=== PATIENT | female | born 1985 | race Caucasian/White ===

== ENCOUNTER 2018-09-28 09:46 | Inpatient (IN) ==
--- NOTE | 2018-09-28 10:53 | History & Physical Report ---
Date of Service September 28, 2018 Assessment & Plan (1) with flank pain, antepartum: 41wk with ripe cervix but no active cervical change and therefore no labor. Planned initially for IOL tomorrow, but patient asked that this be delayed a few more days and now scheduled for Weds. Patient presents with acute R flank pain onset last night and kept her from sleeping, is not responding to OTC pain meds or heat. Noted to have personal h/o kidney stone. Most likely diagnoses are either hydronephrosis or nephrolithiasis, either of which may actually resolve with decompression of the R ureter via delivery of . In the event that narcotics, lithotripsy, stone retrieval, etc are needed, these interventions are similarly best done after has been delivered. Will start with retroperitoneal US to evaluate kidney. Patient advised that induction of labor might be the best next step. At this point, the flank pain is bad enough the patient is open to induction if that will help relieve the pain. She does not feel she can spend another night in the kind of pain she had last night. Present on Admission?: Yes History of Present Illness Primary Care Provider: Yordy Walker Allergies Allergy/AdvReac Type Severity Reaction Status Date / Time amoxicillin Allergy Mild Hives Verified 09/22/18 18:41 azithromycin [From Zithromax] Allergy Mild Hives Verified 09/22/18 18:41 clindamycin Allergy Mild Hives Verified 09/22/18 18:41 doxycycline Allergy Mild Hives Verified 09/22/18 18:41 Home Medications Home Medications Medication Instructions Recorded Confirmed Type fluticasone propionate [Flonase 1 spray INTRANASAL DAILY 09/22/18 09/22/18 History Allergy Relief] loratadine [Claritin] 10 mg PO DAILY 09/22/18 09/22/18 History vit-iron fum-folic ac 1 tab PO DAILY 09/22/18 09/22/18 History [ Vitamin] ranitidine HCl 150 mg PO DAILY 09/22/18 09/22/18 History Patient History Medical History Anxiety Stopped Ativan with +HPT Depression has not taken medication for several years GERD (gastroesophageal reflux disease) History of recurrent UTIs Personal history of kidney stones [employer] [place] [employer] [place] teeth extracted Social History Preferred Language: Guyanese Communication Ability: Effective Beliefs That Will Affect Care: None marital status: Current Living Situation: Spouse Other Information That Helps Us Care for You: No Feels Safe at Home: Yes Safety Concerns: Feels Safe At This Time Smoking Status: Never smoker Hx Alcohol Use: No Hx Substance Use: No Physical Exam Vital Signs (Past 24 Hours): Last Vital Signs Temp 36.8 C 09/28/18 09:59 Pulse 77 09/28/18 10:00 Resp 20 09/28/18 09:59 BP 129/84 09/28/18 10:00 Constitutional: WD/WN, vitals as above Eyes: PERRL, conjunctivae normal, anicteric sclerae Neck: trachea midline, no thyromegaly Respiratory: normal respiratory effort, lungs clear to auscultation Cardiovascular: RRR, no murmur, no edema Gastrointestinal (Abdomen): Gravid, NT. R CVA TTP significant. No pain traveling down lateral flank or into pelvic region. Musculoskeletal: no cyanosis or clubbing, extremities motor strength 5/5 Skin: no rashes, warm and dry Neurologic: patellar DTR's 2+ bilat, sensation intact Monitoring External Monitor Cat 1 Tocodynamometer Low amplitude waves, irritability. Rare discrete contractions that palpate mild.
[2018-09-28 11:04] LABS: Basophils # (auto) 0.02 K/uL (0-0.2); Basophils % (auto) 0.2 %; Eosinophils # (auto) 0.11 K/uL (0-0.5); Eosinophils % (auto) 0.9 %; Hematocrit (blood only) 31.4 % (37-47); Hemoglobin 11.1 g/dL (12.0-16.0); Immature Granulocytes # (auto) 0.15 K/uL (0.00-0.02); Immature Granulocytes % (auto) 1.2 %; Lymphocytes # (auto) 1.47 K/uL (1.2-3.4); Lymphocytes % (auto) 11.6 %; Monocytes # (auto) 0.76 K/uL (0.11-0.59); Neutrophils # (auto) 10.16 K/uL (1.4-6.5); Neutrophils % (auto) 80.1 %; Platelet Count 210 K/uL (130-400); RDW Coefficient of Variation 13.9 % (11.5-14.5); RDW Standard Deviation 45.2 fL (36.4-46.3); Red Blood Count 3.49 M/uL (4.2-5.4); White Blood Count 12.67 K/uL (4.8-10.8)
[2018-09-28 11:08] LABS: Mean Corpuscular Hgb Conc 35.4 g/dL (32-36)
[2018-09-28 11:20] LABS: BUN Creatinine Ratio 8.7 (10-20); Calcium 9.2 mg/dl (8.5-10.1); Creatinine Clr Calc Pharmacy 119.6 ml/min; Est GFR (African American) 102.2; Est GFR (Non-African American) 88.1; Potassium 3.5 mmol/L (3.5-5.1)
[2018-09-28 11:57] LABS: Appearance Urine Clear (Clear); Bilirubin Urine Negative (Negative); Blood Urine 3+ (Negative); Color Urine Yellow; Glucose Urine UA Negative (Negative); Ketones Urine Negative (Negative); Leukocyte Esterase Urine 2+ (Negative); Nitrite Urine Negative (Negative); Protein Urine Negative (Negative); Specific Gravity Urine <= 1.005 (1.000-1.030); Urobilinogen Urine Negative (Negative); pH Urine 7.5 (4.5-7.5)
[2018-09-28 12:17] LABS: Epithelial Cell Urine >30 /lpf (0-5); RBC Urine 0-4 /hpf (0-4)
[2018-09-28 12:18] LABS: Bacteria Urine 1+ (Negative)
--- NOTE | 2018-09-28 12:36 | Ultrasound Report ---
US renal/blad retro comp HISTORY: 32 years-old Female R/O Nephrolithiasis, female acute bilateral flank pain with pr egnancy COMPARISON: None available TECHNIQUE: Multiple real-time sonographic images of the kidneys and urinary bladder were obtained ass essing grayscale appearance and color flow FINDINGS: The left kidney measures 13.1 cm in length and demonstrates moderate hydroureteronephrosis. There is a 1.0 cm nonobstructing calculus noted about the inferior pole left kidney. head causes mass effect upon the urinary bladder which is otherwise unremarkable. No ureteral j ets identified. Right kidney measures 13.0 cm in length. Moderate right-sided hydroureteronephrosis without right yulia al calculi identified. IMPRESSION: 1. Symmetric moderate bilateral hydroureteronephrosis. 2. 1.0 cm nonobstructing calculus of the inferior pole left kidney. 3. head partially compresses the urinary bladder lumen. The above report was generated using voice recognition software. It may contain grammatical, syntax o r spelling errors. Electronically signed by: Shyam Gunderson M.D. 09/28/2018 12:35 PM
[2018-09-28] MEDS ORDERED: OXYTOCIN 30 UNITS/500 ML BAG IV PRN ×2 (12:51)
[2018-09-28] MEDS ORDERED: LACTATED RINGER'S 1,000 ML IV PRN ×3 (12:51→22:31)
[2018-09-28] MEDS ORDERED: CEFAZOLIN 2000MG 2,000 MG/15 ML SYR IV STA (12:55)
--- NOTE | 2018-09-28 12:55 | Labor Progress Brief Note ---
Date of Service September 28, 2018 Assessment & Plan (1) with flank pain, antepartum: Postterm with compression of bladder and ureters causing moderate hydroureteronephrosis with R flank pain. Recommend IOL which patient is agreeable to, in order to decompress urinary system and relieve pain. UA contaminated and not overtly suggestive of UTI, however patient to receive cephalosporin for GBS prophylaxis and this will offer some coverage for potential urinary tract infection anyway. She is aware of plan for pitocin, with AROM after antibiotics on board, and all questions answered to her satisfaction. Present on Admission?: Yes Physical Exam Vital Signs (Past 24 Hours): Last Vital Signs Temp 36.8 C 09/28/18 09:59 Pulse 77 09/28/18 10:00 Resp 20 09/28/18 09:59 BP 129/84 09/28/18 10:00 Results & Data Laboratory Results Laboratory Results - last 24 hr 09/28/18 09/28/18 09/28/18 10:50 10:50 Unknown WBC 12.67 H RBC 3.49 L Hgb 11.1 L Hct 31.4 L MCV 90.0 MCH 31.8 MCHC 35.4 RDW Std Deviation 45.2 RDW Coeff of [place] 13.9 Plt Count 210 MPV 11.0 H Immature Gran % (Auto) 1.2 Neut % (Auto) 80.1 Lymph % (Auto) 11.6 [place] % (Auto) 6.0 Eos % (Auto) 0.9 Baso % (Auto) 0.2 Immature Gran # (Auto) 0.15 H Neut # (Auto) 10.16 H Lymph # (Auto) 1.47 [place] # (Auto) 0.76 H Eos # (Auto) 0.11 Baso # (Auto) 0.02 Sodium 138 Potassium 3.5 Chloride 108 H Carbon Dioxide 23 Anion Gap 7.0 BUN 7 Creatinine 0.86 Est Cr Clr Drug Dosing 119.6 Est GFR ( Amer) 102.2 Est GFR (Non-Af Amer) 88.1 BUN/Creatinine Ratio 8.7 L Glucose 67 L Calcium 9.2 Urine Color Yellow Urine Appearance Clear Urine pH 7.5 Ur Specific [place] <= 1.005 Urine Protein Negative Urine Glucose (UA) Negative Urine Ketones Negative Urine Blood 3+ H Urine Nitrite Negative Urine Bilirubin Negative Urine Urobilinogen Negative Ur Leukocyte Esterase 2+ H Urine RBC 0-4 Urine WBC 10-30 H Ur Epithelial Cells >30 H Urine Bacteria 1+ H Diagnostic Findings Renal ultrasound reviewed. Report in chart. Hydroureteronephrosis, moderate; L nonobstructing renal stone.
[2018-09-28] MEDS: LACTATED RINGER'S 1,000 ML IV SCH ×3 (13:15→22:27)
[2018-09-28] MEDS ORDERED: ACETAMINOPHEN 325 MG TAB PO STA (15:48)
--- NOTE | 2018-09-28 17:11 | Labor Progress Brief Note ---
Date of Service September 28, 2018 Subjective Coping with pain by standing, rocking, walking. Declines epidural at this time. Feels she needs to have BM but declines cervical check. Assessment & Plan (1) with flank pain, antepartum: Patient's second dose of GBS abx due after 9pm. At that time pt will accept cervical exam and AROM. For the moment she prefers not to be examined Will continue to titrate pitocin to Q2min pattern and provide epidural upon request in the meantime. Physical Exam Vital Signs (Past 24 Hours): Last Vital Signs Temp 36.9 C 09/28/18 15:04 Pulse 86 09/28/18 16:28 Resp 18 09/28/18 16:28 BP 134/84 09/28/18 16:28 Physical Exam: FHT Cat 1. [place] Q4 roughly.
[2018-09-28] MEDS: CEFAZOLIN 1000MG 1,000 MG/7.5 ML SYR IV PRN (21:02)
--- NOTE | 2018-09-28 21:04 | Labor Progress Brief Note ---
Date of Service September 28, 2018 Subjective Tolerating contractions by standing and swaying at bedside. Agreeable to AROM as planned at this time. Refuses epidural. Assessment & Plan (1) with flank pain, antepartum: Continue IOL with increasing pitocin, epidural on request, Ancef for GBS prophylaxis with multiple allergies. Physical Exam Vital Signs (Past 24 Hours): Last Vital Signs Temp 36.5 C 09/28/18 19:26 Pulse 72 09/28/18 19:26 Resp 18 09/28/18 19:26 BP 122/73 09/28/18 19:26 Physical Exam: FHT Cat 1 [place] Q3min Cvx 4/75/-2 AROM copious clear fluid
[2018-09-28] MEDS ORDERED: BUPIVACAINE 0.25% 30 ML VIAL ONE (21:21)
[2018-09-28] MEDS ORDERED: ePHEDrine sulfate 50 MG/ML AMP ONE (21:22)
[2018-09-28] MEDS ORDERED: fentaNYL citrate 100 MCG/2 ML VIAL ONE (21:22)
[2018-09-28] MEDS ORDERED: fentaNYL 2MCG/ML ROPIV 1.25MG/ML 100 ML BAG EPI ONE (21:23)
--- NOTE | 2018-09-28 21:53 | Anesthesiology Consultation ---
Date of Service September 28, 2018 Assessment & Plan Chart Review Chart Review: Patient NOT seen in Pre Admission Testing and Acceptable Risk for Labor Epidural Consults Requested none ASA ASA3 Proposed Anesthesia Anesthesia Type: Labor Epidural Risk / Benefits Reviewed With: PT / POA / Parent / Guardian, Accepts Plan and Informed Consent Obtained NPO Date Last Intake of Fluids: 09/28/18 Time Last Intake of Fluids: 22:28 Date Last Intake of Solids: 09/28/18 Time Last Intake of Solids: 08:00 History Height/Weight Height: 5 ft 6 in Weight: 116.573 kg Allergies Allergy/AdvReac Type Severity Reaction Status Date / Time amoxicillin Allergy Mild Hives Verified 09/28/18 13:45 azithromycin [From Zithromax] Allergy Mild Hives Verified 09/28/18 13:45 clindamycin Allergy Mild Hives Verified 09/28/18 13:45 doxycycline Allergy Mild Hives Verified 09/28/18 13:45 Medications Home Medications Medication Instructions Recorded Confirmed Last Taken fluticasone propionate [Flonase 1 spray INTRANASAL DAILY 09/22/18 09/28/18 09/22/18 Allergy Relief] loratadine [Claritin] 10 mg PO DAILY 09/22/18 09/28/18 09/27/18 08:00 vit-iron fum-folic ac 1 tab PO DAILY 09/22/18 09/28/18 09/27/18 08:00 [ Vitamin] ranitidine HCl 150 mg PO BID 09/22/18 09/28/18 09/27/18 20:00 Active Medications Generic Name Dose Route Start Last Admin Trade Name Freq PRN Reason Stop Dose Admin Cefazolin Sodium 1,000 mg in 7.5 mls @ 2.5 mls/min 09/28/18 21:00 09/28/18 21 :02 Ancef 1000mg IV 10/08/18 20:59 2.5 mls/min Q8H PRN Administration until delivery Lactated Ringer's 1,000 mls @ 125 mls/hr 09/28/18 13:00 09/28/18 22:27 Lr IV 09/30/18 12:59 125 mls/hr .Q8H HERMINIA Administration Oxytocin 30 units in 500 mls @ 15 mls/hr 09/28/18 12:51 09/28/18 18:49 Pitocin IV 09/30/18 12:50 0.9 units/hr .Q24H PRN 15 mls/hr Labor Induction/Augmentation Titration Protocol 0.9 UNITS/HR Past Medical History Medical History Anxiety Stopped Ativan with +HPT Depression has not taken medication for several years GERD (gastroesophageal reflux disease) History of recurrent UTIs Personal history of kidney stones [place] teeth extracted Past Anesthesia History No Hx of Anesthesia Complications History of PONV No Motion Sickness Screening History of Motion Sickness: Yes Social History Smoking Status: Never smoker Hx Alcohol Use: No Hx Substance Use: No substance use type: does not use Exercise / Class Metabolic Activity II 4-5 Yardwork/Stairs/Walk up hill Negative for chest pain or shortness of breath. Physical Exam Vital Signs Last Vital Signs Temp 36.5 C 09/28/18 19:26 Pulse 80 09/28/18 22:26 Resp 18 09/28/18 19:26 BP 123/64 09/28/18 22:26 Pulse Ox 98 09/28/18 22:26 Constitutional + obese (Gravid uterus) ENMT Mouth: no TMJ abnormality and oral opening not small Thyromental Distance: > or= 3.5 Finger Breadths Mallampati Class: I Neck normal visual inspection; neck extension not limited Respiratory normal respiratory effort Auscultation: lungs clear to auscultation bilaterally Cardiovascular Rate/Rhythm: regular rate and regular rhythm Heart Sounds: no murmur Neurologic moves all extremities Motor/Sensory: no sensory deficit Psychiatric A+Ox3, euthymic affect Orientation: alert and oriented x 3 Testing Laboratory Results 09/28/18 10:50 09/28/18 10:50 Urine Color Yellow 09/28/18 Unknown Urine Appearance Clear (Clear) 09/28/18 Unknown Urine pH 7.5 (4.5-7.5) 09/28/18 Unknown Ur Specific [place] <= 1.005 (1.000-1.030) 09/28/18 Unknown Urine Protein Negative (Negative) 09/28/18 Unknown Urine Glucose (UA) Negative (Negative) 09/28/18 Unknown Urine Ketones Negative (Negative) 09/28/18 Unknown Urine Nitrite Negative (Negative) 09/28/18 Unknown Ur Leukocyte Esterase 2+ (Negative) H 09/28/18 Unknown Urine RBC 0-4 /hpf (0-4) 09/28/18 Unknown Urine WBC 10-30 /hpf (0-5) H 09/28/18 Unknown Ur Epithelial Cells >30 /lpf (0-5) H 09/28/18 Unknown
[2018-09-28] MEDS ORDERED: fentaNYL 2MCG/ML ROPIV 1.25MG/ML 100 ML BAG EPI PRN (22:31)
[2018-09-28] MEDS ORDERED: ONDANSETRON INJ 2 MG/ML 2 ML VIAL IV PRN (22:31)
[2018-09-28] MEDS ORDERED: NALOXONE HCL 0.4 MG/1 ML VIAL/CARP IV PRN (22:31)
[2018-09-28] MEDS ORDERED: DiphenhydrAMINE HCL 50 MG/ML VIAL IV PRN (22:31)
[2018-09-28] MEDS ORDERED: NALOXONE HCL 1 MG in SODIUM CHLORIDE 0.9% 1000ML 1,000 ML IV PRN (22:31)
[2018-09-28] MEDS ORDERED: NALBUPHINE HCL INJ 10 MG/ML AMP IV PRN (22:31)
[2018-09-28] MEDS ORDERED: ePHEDrine sulfate 50 MG/ML AMP IV PRN (22:31)
[2018-09-28] MEDS ORDERED: ONDANSETRON INJ 2 MG/ML 2 ML VIAL ONE (22:38)
--- NOTE | 2018-09-28 23:17 | Labor Progress Brief Note ---
Date of Service September 28, 2018 Subjective Resting after epidural. Assessment & Plan (1) with flank pain, antepartum: Care discussed with RN and also with Dr. Wolfe. Patient at this time declines cervical check and requests to rest. Physical Exam Vital Signs (Past 24 Hours): Last Vital Signs Temp 36.5 C 09/28/18 19:26 Pulse 75 09/28/18 23:13 Resp 18 09/28/18 19:26 BP 116/62 09/28/18 23:13 Pulse Ox 97 09/28/18 23:11 Physical Exam: FHT Cat 1 (had lates after epidural, back to Cat 1 after BP improved s/p ephedrine). [place] Q2-3m
--- NOTE | 2018-09-29 04:00 | Labor Progress Brief Note ---
Date of Service September 29, 2018 Subjective Resting after epidural. Beginning to feel pressure again with contractions. Assessment & Plan (1) with flank pain, antepartum: Continue pitocin, Cephalosporin, epidural. Anticipate . Physical Exam Vital Signs (Past 24 Hours): Last Vital Signs Temp 36.8 C 09/29/18 02:35 Pulse 86 09/29/18 03:56 Resp 18 09/29/18 01:09 BP 118/64 09/29/18 03:52 Pulse Ox 100 09/29/18 03:56 Physical Exam: FHT Cat 1 [place] Q2m Cvx 9/100/-1
[2018-09-29] MEDS: CEFAZOLIN 1000MG 1,000 MG/7.5 ML SYR IV PRN (04:47)
[2018-09-29] MEDS: LACTATED RINGER'S 1,000 ML IV SCH (07:08)
[2018-09-29] MEDS ORDERED: BUPIVACAINE 0.25% 30 ML VIAL ONE (07:09)
--- NOTE | 2018-09-29 07:22 | Labor Progress Brief Note ---
Date of Service September 29, 2018 Subjective Complaining she can feel back pain and requesting epidural bolus dose. Assessment & Plan (1) with flank pain, antepartum: Epidural bolus dose, empty bladder, and reassess cervix to hopefully begin second stage of labor in the next 1-2 hours. Physical Exam Vital Signs (Past 24 Hours): Last Vital Signs Temp 36.8 C 09/29/18 06:02 Pulse 95 H 09/29/18 07:16 Resp 18 09/29/18 04:14 BP 125/70 09/29/18 05:52 Pulse Ox 100 09/29/18 07:16 Physical Exam: FHT Cat 1 [place] Q2-3m Cvx per RN exam: lip remains on R side only, not reducible
--- NOTE | 2018-09-29 07:41 | Labor Progress Brief Note ---
Date of Service September 29, 2018 Subjective comfortable after epidural redose Assessment & Plan (1) with flank pain, antepartum: Allow to rest and have ant lip reduce and hopefully labor down. op. Seems to have plenty of room. fetus category one. Physical Exam Vital Signs (Past 24 Hours): Last Vital Signs Temp 36.6 C 09/29/18 07:15 Pulse 84 09/29/18 07:37 Resp 18 09/29/18 07:15 BP 110/56 L 09/29/18 07:37 Pulse Ox 98 09/29/18 07:36 Constitutional: WD/WN, vitals as above Genitourinary: cx--ant lip/100/0 rop toco--q2-3min, pit at 15 efm--145 with mod variability, +small accels, no decels
--- NOTE | 2018-09-29 10:03 | Labor Progress Brief Note ---
Date of Service September 29, 2018 Subjective noting contractions again Assessment & Plan (1) with flank pain, antepartum: Begin second stage. Fetus overall category one . anticipate . Physical Exam Vital Signs (Past 24 Hours): Last Vital Signs Temp 36.9 C 09/29/18 09:30 Pulse 88 09/29/18 09:56 Resp 18 09/29/18 09:30 BP 132/62 09/29/18 09:54 Pulse Ox 98 09/29/18 09:56 Constitutional: WD/WN, vitals as above Genitourinary: cx--c/c/+1 toco--q2-3min, pit at 15 efm--135 wtih mod variability, accels to 150s, rare variable
--- NOTE | 2018-09-29 11:07 | Labor Progress Brief Note ---
Date of Service September 29, 2018 Subjective pushing Assessment & Plan (1) with flank pain, antepartum: Patient has not been pushing all that effectively. No movement of the station since started pushing. discussion that she needs to push harder if we have any chance of vaginal delivery. I am concerned about FTD and expressed this concern to them. the only thing she has control over is her effort. Fetus is rop. Reassuring fht. Will continue to push at this point. Physical Exam Vital Signs (Past 24 Hours): Last Vital Signs Temp 36.9 C 09/29/18 09:30 Pulse 95 H 09/29/18 11:01 Resp 18 09/29/18 09:30 BP 127/78 09/29/18 10:54 Pulse Ox 98 09/29/18 11:01 Constitutional: WD/WN, vitals as above Genitourinary: cx--c/c/0-+1, floppy lip that is easily reducible at 1 o'clock toco--q2-3min, pit at 17 efm--140 with mod variability, small accels, variables with pushing.
--- NOTE | 2018-09-29 12:17 | Labor Progress Brief Note ---
Date of Service September 29, 2018 Subjective getting uncomfortable again. Assessment & Plan (1) with flank pain, antepartum: (2) Failure of descent in labor, delivered, current hospitalization: I have recommended proceeding with c/s. r/b/se of surgery discussed--anesthesia, bleeding, transfusion, infection, poor wound healing, damage to surrounding structures--bowel, bladder, vessels, nerves, ureters, need for further surgery or hospitalization, blood clot, stroke, mi, . Patient and express understanding of the situation. Will proceed. Physical Exam Vital Signs (Past 24 Hours): Last Vital Signs Temp 36.9 C 09/29/18 09:30 Pulse 91 H 09/29/18 12:11 Resp 18 09/29/18 09:30 BP 133/86 09/29/18 12:05 Pulse Ox 96 09/29/18 12:11 Constitutional: WD/WN, vitals as above Genitourinary: cx--c/c/0-+1. Baby has not descended in the pelvis with over two hours of pushing. Head is molding and caput forming but true cephalic not lower toco--q24-min, pit at 18 efm--1250s with min to mod variability, small accels , variable decels only with pushing.
[2018-09-29] MEDS ORDERED: ONDANSETRON INJ 2 MG/ML 2 ML VIAL ONE (12:18)
[2018-09-29] MEDS ORDERED: OXYTOCIN 10 UNITS/ML VIAL ONE (12:18)
[2018-09-29] MEDS ORDERED: LIDOCAINE/EPINEPHRINE 2% 1:200,000 20 ML SDV ONE (12:18)
[2018-09-29] MEDS ORDERED: CITRIC ACID/SODIUM CITRATE 15 ML UDC ONE (12:28)
[2018-09-29] MEDS ORDERED: CEFAZOLIN 3000MG 65 ML IV SCH (12:30)
[2018-09-29] MEDS ORDERED: LACTATED RINGER'S 1,000 ML IV SCH ×2 (12:30→13:19)
[2018-09-29] MEDS ORDERED: PHENYLEPHRINE 100MCG/ML 5ML SYR ONE (13:01)
[2018-09-29] MEDS ORDERED: MoRPHine SULFATE PF 1 MG/ML 10 ML AMP/VIAL ONE (13:05)
[2018-09-29] MEDS ORDERED: METHYLERGONOVINE MALEATE 0.2 MG/ML AMP ONE (13:17)
[2018-09-29] MEDS ORDERED: NALOXONE HCL 0.08 MG in SYRINGE 1.8 ML IV PRN (13:19)
[2018-09-29] MEDS ORDERED: MoRPHine SULFATE 2 MG/ML CARP IV PRN (13:19)
[2018-09-29] MEDS ORDERED: NALOXONE HCL 0.4 MG/1 ML VIAL/CARP IV PRN (13:19)
[2018-09-29] MEDS ORDERED: LACTATED RINGER'S 500 ML IV PRN (13:19)
[2018-09-29] MEDS ORDERED: NALOXONE HCL 1 MG in SODIUM CHLORIDE 0.9% 1000ML 1,000 ML IV PRN (13:19)
[2018-09-29] MEDS ORDERED: MEPERIDINE HCL 25 MG/ML CARP IV PRN (13:19)
[2018-09-29] MEDS ORDERED: DiphenhydrAMINE HCL 50 MG/ML VIAL IV PRN (13:19)
[2018-09-29] MEDS ORDERED: MoRPHine SULFATE PF 1 MG/ML 10 ML AMP/VIAL EPI ONE (13:19)
[2018-09-29] MEDS ORDERED: ePHEDrine sulfate 50 MG/ML AMP IV PRN (13:19)
[2018-09-29] MEDS ORDERED: ONDANSETRON INJ 2 MG/ML 2 ML VIAL IV PRN (13:19)
[2018-09-29] MEDS ORDERED: NALBUPHINE HCL INJ 10 MG/ML AMP IV PRN (13:19)
[2018-09-29] MEDS ORDERED: DC INTRASPINAL MORPHINE SCH (13:30)
[2018-09-29] MEDS ORDERED: NO NARCOTICS OR SEDATIVES SCH (13:30)
[2018-09-29] MEDS ORDERED: SODIUM CHLORIDE 0.9% 1000ML 1,000 ML IV SCH (13:30)
--- NOTE | 2018-09-29 13:31 | Post Operative Brief Note ---
Immediate Post Op Note v1 Date of Surgery September 29, 2018 Pre & Post Diagnosis Operation Date: 09/29/18 12:30 Pre-Op Diagnosis: Intrauterine pregrancy at 41 1/7 weeks, arrest of descent Post-Op Diagnosis: Intrauterine pregrancy at 41 1/7 weeks, arrest of descent. Procedure Operation Date: 09/29/18 12:30 <No data on this case meets the specified criteria> Primary low transverse Surgeon Faiza Dave MD, FACOG Carrot Buncher Daniela Santana RN Estimated Blood Loss 700 Findings Consistent with Post-Op Diagnosis Drains Mahmood Catheter (mahmood catheter was present upon arrival to OR; draining pink tinged fluid, Urine output to be monitored by anesthesia intraoperatively.)
[2018-09-29] MEDS ORDERED: KETOROLAC 30 MG/ML VIAL IV PRN (13:42)
[2018-09-29] MEDS ORDERED: DIPHTHERIA/TETANUS/PERTUSSIS 0.5 ML SYR/VIAL IM ONE (13:42)
[2018-09-29] MEDS ORDERED: MEPERIDINE HCL 50 MG/ML CARP IV PRN (13:42)
[2018-09-29] MEDS ORDERED: HYDROCORTISONE ACETATE 25 MG SUPP PR PRN (13:42)
[2018-09-29] MEDS ORDERED: BENZOCAINE 20% AER SPR 82.5 GM CAN EXT PRN (13:42)
[2018-09-29] MEDS ORDERED: SUPERCREAM 0.870% 15 GM JAR EXT PRN (13:42)
--- NOTE | 2018-09-29 13:51 | Anesthesiology Progress Note ---
Date of Service September 29, 2018 Anesthesia Post Procedure Vital Signs Vital Signs: Temp Pulse Resp BP BP Pulse Ox 09/29/18 13:46 83 126/61 100 09/29/18 13:41 88 94 09/29/18 12:26 95 H 98 09/29/18 12:21 103 H 96 09/29/18 12:19 103 H 91 09/29/18 12:16 98 H 95 09/29/18 12:14 93 H 138/82 09/29/18 12:13 94 H 94 09/29/18 12:11 91 H 96 09/29/18 12:06 110 H 98 09/29/18 12:05 108 H 133/86 09/29/18 12:01 113 H 97 09/29/18 11:57 122 H 93 09/29/18 11:56 99 H 96 09/29/18 11:55 104 H 132/81 09/29/18 11:51 95 H 96 09/29/18 11:46 136 H 97 09/29/18 11:45 37.3 C 18 09/29/18 11:41 104 H 95 09/29/18 11:36 103 H 96 09/29/18 11:35 124 H 93 09/29/18 11:34 93 H 115/57 L 09/29/18 11:31 98 H 96 09/29/18 11:26 92 H 96 09/29/18 11:24 93 H 116/61 09/29/18 11:21 105 H 97 09/29/18 11:16 93 H 117/61 96 09/29/18 11:14 102 H 93 09/29/18 11:11 105 H 98 09/29/18 11:06 93 H 96 09/29/18 11:04 91 H 133/79 09/29/18 11:01 95 H 98 09/29/18 10:56 94 H 98 09/29/18 10:55 104 H 92 09/29/18 10:54 89 127/78 09/29/18 10:51 95 H 97 09/29/18 10:49 100 H 92 09/29/18 10:46 90 98 09/29/18 10:44 94 H 127/82 09/29/18 10:42 99 H 92 09/29/18 10:41 91 H 98 09/29/18 10:36 103 H 92 09/29/18 10:31 90 95 09/29/18 10:28 90 94 09/29/18 10:26 95 H 98 09/29/18 10:24 84 144/75 H 09/29/18 10:21 92 H 99 09/29/18 10:16 89 99 09/29/18 10:11 88 98 09/29/18 10:06 87 100 09/29/18 10:05 92 H 135/65 09/29/18 10:01 85 100 09/29/18 09:56 88 98 09/29/18 09:54 84 132/62 09/29/18 09:51 91 H 98 09/29/18 09:46 93 H 95 09/29/18 09:44 88 129/75 09/29/18 09:42 86 94 09/29/18 09:41 93 H 96 09/29/18 09:37 89 94 09/29/18 09:36 84 97 09/29/18 09:34 95 H 132/75 09/29/18 09:31 89 95 09/29/18 09:30 36.9 C 18 09/29/18 09:26 86 98 09/29/18 09:25 85 145/111 H 09/29/18 09:21 90 97 09/29/18 09:16 94 H 99 09/29/18 09:14 88 106/53 L 09/29/18 09:11 87 98 09/29/18 09:06 87 98 09/29/18 09:04 83 113/56 L 09/29/18 09:01 83 96 09/29/18 08:56 88 98 09/29/18 08:54 83 112/57 L 09/29/18 08:51 88 97 09/29/18 08:46 87 97 09/29/18 08:45 89 118/57 L 09/29/18 08:41 91 H 96 09/29/18 08:36 88 95 09/29/18 08:34 85 112/56 L 09/29/18 08:31 86 94 09/29/18 08:27 86 94 09/29/18 08:26 86 95 09/29/18 08:25 83 108/57 L 09/29/18 08:21 84 95 09/29/18 08:16 91 H 95 09/29/18 08:14 89 106/54 L 94 09/29/18 08:11 86 94 09/29/18 08:09 86 94 09/29/18 08:06 87 94 09/29/18 08:04 82 105/51 L 09/29/18 08:03 85 94 09/29/18 08:01 86 95 09/29/18 07:57 86 94 09/29/18 07:56 86 95 09/29/18 07:54 82 109/55 L 09/29/18 07:52 84 94 09/29/18 07:51 82 95 09/29/18 07:46 83 95 09/29/18 07:43 80 115/58 L 09/29/18 07:41 83 114/55 L 95 09/29/18 07:39 86 113/56 L 93 09/29/18 07:37 84 110/56 L 09/29/18 07:36 88 98 09/29/18 07:35 85 108/55 L 09/29/18 07:34 82 94 09/29/18 07:33 80 112/55 L 09/29/18 07:31 83 107/57 L 96 09/29/18 07:29 81 116/58 L 09/29/18 07:28 83 93 09/29/18 07:27 78 114/56 L 09/29/18 07:26 91 H 96 09/29/18 07:25 81 117/61 09/29/18 07:23 91 H 140/86 09/29/18 07:21 84 135/82 99 09/29/18 07:19 96 H 127/82 09/29/18 07:16 95 H 100 09/29/18 07:15 36.6 C 18 09/29/18 07:11 98 H 99 09/29/18 07:06 90 99 09/29/18 07:01 88 96 09/29/18 06:57 82 93 09/29/18 06:56 85 99 09/29/18 06:51 84 95 09/29/18 06:46 85 97 09/29/18 06:41 87 99 09/29/18 06:36 90 98 09/29/18 06:31 87 98 09/29/18 06:26 89 98 09/29/18 06:21 88 99 09/29/18 06:16 90 99 09/29/18 06:11 88 98 09/29/18 06:06 93 H 100 09/29/18 06:02 36.8 C 09/29/18 06:01 90 100 09/29/18 05:56 77 100 09/29/18 05:52 81 125/70 09/29/18 05:51 81 99 09/29/18 05:46 82 100 09/29/18 05:41 77 100 09/29/18 05:37 80 126/67 09/29/18 05:36 82 100 09/29/18 05:31 83 100 09/29/18 05:26 79 100 09/29/18 05:22 79 126/61 09/29/18 05:21 81 100 09/29/18 05:16 85 100 09/29/18 05:11 89 100 09/29/18 05:08 88 135/63 09/29/18 05:06 82 100 09/29/18 05:01 82 97 09/29/18 04:56 82 98 09/29/18 04:53 82 107/59 L 09/29/18 04:51 83 98 09/29/18 04:46 81 99 09/29/18 04:41 85 98 09/29/18 04:38 81 115/61 09/29/18 04:36 81 97 09/29/18 04:31 83 97 09/29/18 04:26 79 97 09/29/18 04:22 79 119/62 09/29/18 04:21 81 97 09/29/18 04:16 88 100 09/29/18 04:14 36.7 C 18 09/29/18 04:11 91 H 98 09/29/18 04:08 83 116/63 09/29/18 04:06 88 98 09/29/18 04:01 82 97 09/29/18 04:00 114/55 L 09/29/18 03:56 86 100 09/29/18 03:52 75 118/64 09/29/18 03:51 77 100 09/29/18 03:46 81 100 09/29/18 03:41 75 98 09/29/18 03:37 75 98/55 L 09/29/18 03:36 79 99 09/29/18 03:31 79 97 09/29/18 03:26 75 96 04/01/19 03:21 77 99/56 L 96 09/29/18 03:16 82 95 09/29/18 03:11 78 95 09/29/18 03:06 77 95/51 L 95 09/29/18 03:03 78 94 09/29/18 03:01 80 94 09/29/18 02:57 80 94 09/29/18 02:56 79 94 09/29/18 02:52 78 97/54 L 09/29/18 02:51 80 95 09/29/18 02:50 77 94 09/29/18 02:46 81 94 09/29/18 02:45 80 94 09/29/18 02:41 81 94 09/29/18 02:39 78 94 09/29/18 02:37 77 96/53 L 09/29/18 02:36 78 94 09/29/18 02:35 36.8 C 93 H 94/53 L 09/29/18 02:33 79 94 09/29/18 02:31 80 95 09/29/18 02:28 77 90/50 L 94 09/29/18 02:26 78 95 09/29/18 02:22 78 91/55 L 94 09/29/18 02:21 78 95 09/29/18 02:16 80 95 09/29/18 02:13 78 94 09/29/18 02:11 77 95 09/29/18 02:08 80 94 09/29/18 02:07 76 98/55 L 09/29/18 02:06 76 96 09/29/18 02:01 76 95 09/29/18 02:00 79 93 09/29/18 01:56 85 106/59 L 98 09/29/18 01:52 81 98/55 L 09/29/18 01:51 100 H 97 09/29/18 01:46 83 96 09/29/18 01:41 82 98 09/29/18 01:38 95 H 128/70 09/29/18 01:36 88 98 09/29/18 01:32 78 93 09/29/18 01:31 78 97 09/29/18 01:26 78 94 09/29/18 01:22 75 127/72 09/29/18 01:21 78 98 09/29/18 01:19 79 94 09/29/18 01:16 84 98 09/29/18 01:11 80 96 09/29/18 01:09 36.8 C 18 09/29/18 01:08 77 116/62 09/29/18 01:06 82 95 09/29/18 01:01 85 97 09/29/18 00:56 76 96 09/29/18 00:51 80 95 09/29/18 00:49 76 111/61 09/29/18 00:46 81 108/58 L 95 09/29/18 00:45 84 94 09/29/18 00:43 83 108/60 09/29/18 00:41 79 96 09/29/18 00:40 81 112/62 09/29/18 00:37 80 107/61 09/29/18 00:36 81 97 09/29/18 00:34 80 107/62 09/29/18 00:31 79 106/60 96 09/29/18 00:28 78 108/60 09/29/18 00:26 81 96 09/29/18 00:25 76 110/61 09/29/18 00:22 77 110/63 09/29/18 00:21 77 96 09/29/18 00:19 78 112/62 09/29/18 00:16 78 118/66 98 09/29/18 00:13 81 119/67 09/29/18 00:11 81 99 09/29/18 00:10 85 115/66 09/29/18 00:07 86 118/69 09/29/18 00:06 79 99 09/29/18 00:04 81 117/69 09/29/18 00:01 83 115/69 100 09/28/18 23:58 76 114/66 09/28/18 23:56 86 97 09/28/18 23:55 82 115/66 09/28/18 23:52 81 115/69 09/28/18 23:51 87 96 09/28/18 23:49 78 111/62 09/28/18 23:46 77 110/61 97 09/28/18 23:43 82 111/60 09/28/18 23:41 79 97 09/28/18 23:40 76 109/59 L 09/28/18 23:37 76 109/59 L 09/28/18 23:36 78 97 03/31/19 23:34 80 110/60 09/28/18 23:31 89 107/60 99 09/28/18 23:28 82 109/60 09/28/18 23:26 77 94 09/28/18 23:25 80 110/59 L 09/28/18 23:22 80 116/61 09/28/18 23:21 81 96 09/28/18 23:19 80 120/62 09/28/18 23:16 78 117/62 96 09/28/18 23:13 75 116/62 09/28/18 23:11 83 97 09/28/18 23:10 77 115/63 09/28/18 23:07 77 116/61 94 09/28/18 23:06 79 95 09/28/18 23:04 86 115/58 L 09/28/18 23:01 86 120/62 99 09/28/18 22:58 84 120/64 09/28/18 22:56 94 H 99 09/28/18 22:55 82 121/62 09/28/18 22:52 85 116/60 09/28/18 22:51 87 92 09/28/18 22:50 85 93 09/28/18 22:48 83 110/58 L 09/28/18 22:46 82 109/59 L 95 09/28/18 22:45 80 114/63 93 09/28/18 22:44 77 112/59 L 09/28/18 22:42 71 95/48 L 09/28/18 22:41 71 99 09/28/18 22:36 75 110/56 L 100 09/28/18 22:32 76 115/58 L 09/28/18 22:31 81 100 09/28/18 22:30 36.5 C 86 18 94 09/28/18 22:29 80 125/68 09/28/18 22:26 80 123/64 98 09/28/18 22:23 76 127/63 09/28/18 22:22 72 126/58 L 09/28/18 22:21 73 100 09/28/18 22:20 71 98/54 L 09/28/18 22:17 76 113/65 09/28/18 22:16 81 100 09/28/18 22:14 75 132/66 09/28/18 22:11 85 100 09/28/18 22:07 72 128/79 09/28/18 22:06 75 100 09/28/18 22:01 81 100 09/28/18 21:56 79 100 09/28/18 21:51 132 H 78 L 09/28/18 21:02 68 132/84 09/28/18 19:26 36.5 C 72 18 122/73 09/28/18 18:41 74 20 136/69 09/28/18 17:47 75 18 122/80 09/28/18 17:12 81 20 141/79 H 09/28/18 16:28 86 18 134/84 09/28/18 15:04 36.9 C 80 18 134/71 Pain Intensity Left Back: Pain Intensity: 10 Notes Mental Status: alert / awake / arousable Patient Amnestic to Procedure: No Nausea / Vomiting: adequately controlled Pain: adequately controlled Airway Patency, RR, SpO2: stable & adequate BP & HR: stable & adequate Hydration State: stable & adequate Neuraxial Anesthesia: was administered and sensory block is resolving Anesthetic Complications: no major complications apparent and Pt Satisfied with anesthetic care
--- NOTE | 2018-09-29 13:51 | Anesthesia Procedure Note ---
Date of Service September 29, 2018 Anesthesia Post Epidural Note Vital Signs Vital Signs: Temp Pulse Resp BP Pulse Ox 37.3 C 83 18 126/61 100 09/29/18 11:45 09/29/18 13:46 09/29/18 11:45 09/29/18 13:46 09/29/18 13:46 Pain Intensity Left Back: Pain Intensity: 10 Notes Mental Status: alert / awake / arousable Patient Amnestic to Procedure: No Nausea / Vomiting: adequately controlled Pain: adequately controlled Airway Patency, RR, SpO2: stable & adequate BP & HR: stable & adequate Hydration State: stable & adequate Neuraxial Anesthesia: was administered and sensory block is resolving Anesthetic Complications: no major complications apparent and Pt Satisfied with anesthetic care Epidural: Removed without complications and With tip intact
[2018-09-29] MEDS ORDERED: OXYTOCIN 30 UNITS in LACTATED RINGER'S 1,000 ML IV ONE (13:55)
[2018-09-29 14:16] LABS: Base Excess Cord Arterial Bld -4.3 mEq/L (-9-1.8); CO2 Cord Arterial Blood 55 mmHg (39.1-73.5); HCO3 Cord Arterial Blood 24 mmol/L (19.7-28.5); pH Cord Arterial Blood 7.25 (7.1-7.38)
[2018-09-29] MEDS ORDERED: GELATIN SPONGE SZ 100 EXT PRN (14:16)
[2018-09-29 14:20] LABS: Base Excess Cord Venous Blood -1.8 mEq/L (-7.7-1.9); Cord Venous Blood HCO3 21 mmol/L (18.4-26.8); Cord Venous Blood PCO2 30 mmHg (30.4-57.2); Cord Venous Blood PO2 33 mmHg (14.1-43.3); Cord Venous Blood pH 7.46 (7.20-7.44)
--- NOTE | 2018-09-29 14:22 | Operative Report ---
DATE OF OPERATION: 09/29/2018 PREOPERATIVE DIAGNOSES: 1. Intrauterine at 41 and 1/7 weeks. 2. Failure to descend. POSTOPERATIVE DIAGNOSES: 1. Intrauterine at 41 and 1/7 weeks. 2. Failure to descend. 3. Direct occiput posterior presentation. 4. Left cervical extension. PROCEDURES: Primary low transverse section. SURGEON: Faiza Dave MD [employer]LECT[employer] LEADER: Daniela Santana RN ANESTHESIA: Epidural. ESTIMATED BLOOD LOSS: 700 mL. FLUIDS: 1500 mL. URINE OUTPUT: 200 mL of concentrated blood-tinged urine drained from the bladder at the end of the procedure. INDICATIONS: The patient is a 1, para 0 at 41 and 1/7 weeks who presented to labor and delivery on Saturday evening with right flank pain. She was evaluated, was found to have bilateral hydronephrosis, right greater than left, and a left nonobstructing stone. Given the situation that she was post-dates, the decision was made to induce her. She started at 3 cm dilated. She underwent Pitocin augmentation, amniotomy, epidural, progressed to complete-complete and 0 to +1 station. She pushed well over 2 hours without any descent of the head. The baby was in OP presentation. A decision was made to proceed with delivery. FINDINGS: Viable female infant in direct occiput posterior presentation with unflexed head. There was a loose nuchal cord x1 and a body cord. Apgars were 9 and 9. Weight was 8 pounds 11 ounces. Uterus, tubes, and ovaries were noted to be normal bilaterally. There was a left cervical extension that was identified and repaired. Although a fibroid was noted on her anatomy ultrasound, I did not appreciate a fibroid grossly. COMPLICATIONS: None. DRAINS: Quintero. DISPOSITION: To recovery room in stable condition. DESCRIPTION OF PROCEDURE: The patient was taken to the operating room where she was identified verbally and by bracelet. She was transferred over to the operating table. She was placed in leftward tilt. A Quintero catheter had already been placed. Her epidural was dosed. She was prepped and draped in normal sterile fashion. Her anesthetic was tested and found to be adequate. A time-out was held, identifying correct patient, procedure and positioning. A Pfannenstiel skin incision was made with the knife. This was taken down to the underlying layer of fascia with Bovie electrocautery. Bleeding was attended to with Bovie electrocautery. The fascia was incised in the midline and taken out laterally with scissors. The superior edge of fascial incision was grasped, elevated and the underlying layer of rectus muscle was taken off bluntly and with scissors. In a similar fashion, the inferior edge of the fascial incision was grasped, elevated and the underlying layer of rectus muscle was taken off bluntly with scissors. The muscles were bluntly and sharply in the midline. The peritoneum was bluntly and it was stretched with the metal shaping machine operator's fingers. The bladder blade was placed. The vesicouterine peritoneum was identified. It was grasped with a snap, entered with scissors, taken out laterally, sharply with scissors and a bladder flap was created digitally. The bladder blade was replaced. Hysterotomy incision was scored with the knife. The uterus was entered with a snap. Clear fluid was noted. The incision was stretched superiorly and inferiorly with the metal shaping machine operator's fingers. The metal shaping machine operator's hand was gently placed into the uterus. I initially had struck my finger in the baby's mouth placing my hand into the uterus. I was then able to place my hand underneath the head, it was gently flexed and lifted up into the incision. The nose and mouth were bulb suctioned. A loose nuchal cord x1 was reduced and rest of the was then delivered without difficulty. The nose and mouth were again bulb suctioned. The cord was clamped and cut. The infant was handed off to the waiting pediatricians for drying and attention. Cord blood and gases were obtained. The placenta was manually extracted. The uterus was exteriorized and cleared of all clot and debris with moistened laparotomy sponges. The bladder blade was replaced. The hysterotomy incision edges were grasped with T clamps. The left cervical extension was identified. The corner of it was grasped with the Tete and then the incision was reapproximated, the first layer in a running locked layer of 0 Vicryl, the second an imbricating layer of 0 Vicryl. Several [id number] sutures were needed in the incision to assure hemostasis, but once hemostasis was assured, the incision was good. The posterior cul-de-sac was irrigated and cleared of all clot and debris. The hysterotomy incision was again inspected. A few oozing edges were attended to with Bovie electrocautery and then hemostasis was noted to be good. Some Gelfoam was placed over the incision. The muscles were reapproximated in the midline using a running suture of 0 Vicryl. The fascia was then reapproximated starting at the corners meeting in midline with 0 Vicryl in a running fashion. The subcuticular tissue was copiously irrigated with warm saline. The hemostasis was noted to be excellent. Several horizontal mattress sutures of 2-0 plain gut were used to close the space and the skin was then closed with 4-0 Vicryl in subcuticular fashion. All sponge, lap and needle counts were correct x2. The patient tolerated the procedure well and was taken to the recovery room in stable condition. Some kind of orange concentrated blood-tinged urine, approximately 200 mL was drained from the Quintero catheter. Of note, when the Quintero catheter was placed, the urine was blood tinged at that time. I was very careful during the course of the procedure to make sure the bladder with clear of our surgical incision. I attest to the content of the Intraoperative Record and any orders documented therein. Any exceptions are noted below. ALLISON
[2018-09-29] MEDS: KETOROLAC 30 MG/ML VIAL IV PRN ×2 (14:59→23:28)
[2018-09-29] MEDS: DOCUSATE SODIUM 100 MG CAP PO SCH (22:01)
[2018-09-30] MEDS ORDERED: CITRIC ACID/SODIUM CITRATE 15 ML UDC PO SCH (06:00)
[2018-09-30 06:47] LABS: Basophils # (auto) 0.02 K/uL (0-0.2); Basophils % (auto) 0.1 %; Eosinophils # (auto) 0.05 K/uL (0-0.5); Eosinophils % (auto) 0.3 %; Hematocrit (blood only) 23.8 % (37-47); Hemoglobin 8.5 g/dL (12.0-16.0); Immature Granulocytes # (auto) 0.11 K/uL (0.00-0.02); Immature Granulocytes % (auto) 0.7 %; Lymphocytes # (auto) 1.59 K/uL (1.2-3.4); Lymphocytes % (auto) 10.8 %; Mean Corpuscular Hgb Conc 35.7 g/dL (32-36); Mean Corpuscular Volume 91.2 fL (80-100); Mean Platelet Volume 10.1 fL (7.4-10.4); Monocytes # (auto) 1.09 K/uL (0.11-0.59); Monocytes % (auto) 7.4 %; Neutrophils # (auto) 11.92 K/uL (1.4-6.5); Neutrophils % (auto) 80.7 %; Platelet Count 145 K/uL (130-400); RDW Coefficient of Variation 14.1 % (11.5-14.5); RDW Standard Deviation 46.3 fL (36.4-46.3); Red Blood Count 2.61 M/uL (4.2-5.4); White Blood Count 14.78 K/uL (4.8-10.8)
[2018-09-30] MEDS: KETOROLAC 30 MG/ML VIAL IV PRN (06:51)
--- NOTE | 2018-09-30 07:00 | Obstetrical Progress Note ---
Date of Service <Benoit Mccartney DO - Last Filed: 09/30/18 07:00> September 30, 2018 Assessment & Plan <Benoit Mccartney DO - Last Filed: 09/30/18 07:00> (1) delivery delivered: Gwendolyn Styles is 30 year old who delivered at 41.1 weeks GA via for failure to progress. - POD #1 - GBS+, covered with antibiotic coverage as per protocol - O-, Rh profile with Rhogam was ordered yesterday - plan is to remove mahmood cath today, encourage ambulation, advance diet as tolerated, analgesics for pain control as needed (2) Failure of descent in labor, delivered, current hospitalization: Delivered via Subjective <Benoit Mccartney DO - Last Filed: 09/30/18 07:00> Voiding: mahmood catheter in place Passing Gas:: Yes Diet Tolerance:: clear liquids Lochia:: Small Feeding Type:: bottle feeding Gwendolyn had no acute events overnight. She denies fever, chills, chest pain, shortness of breath, nausea, vomiting, headache. Her surgical site incisional pain is made better with analgesics. She notes that with feeding type, she started with but is currently switching to bottle. Physical Exam <Benoit Mccartney DO - Last Filed: 09/30/18 07:00> Vital Signs (Past 24 Hours) Last Vital Signs Temp 36.7 C 09/30/18 04:40 Pulse 69 09/30/18 04:40 Resp 18 09/30/18 06:47 BP 100/67 09/30/18 04:40 Pulse Ox 98 09/30/18 06:47 Constitutional WD/WN, vitals as above cooperative and comfortable Eyes + anicteric sclerae and EOM intact bilaterally Neck normal visual inspection and trachea midline Respiratory normal respiratory effort, lungs clear to auscultation Cardiovascular Rate/Rhythm: regular rate and regular rhythm Heart Sounds: no murmur Gastrointestinal (Abdomen) Inspection/Auscultation: normal bowel sounds Percussion/Palpation: abdomen nontender uterine fundus is firm, non-tender and 2cm inferior to umbilicus. Surigical dressing in place this morning which was removed for inspection of surgical incision. Surgical incision site to lower abdomen is intact, dry, well healing without erythema, warmth or signs of infection. Musculoskeletal Head/Neck/Chest: normocephalic and head atraumatic Skin no rashes, warm and dry Neurologic moves all extremities and awake Psychiatric A+Ox3, euthymic affect Genitourinary mahmood cath in place Results & Data <Benoit Mccartney DO - Last Filed: 09/30/18 07:00> Laboratory Results Laboratory Results - last 24 hr 09/28/18 09/29/18 09/29/18 10:52 12:52 12:52 WBC RBC Hgb Hct MCV MCH MCHC RDW Std Deviation RDW Coeff of [place] Plt Count MPV Immature Gran % (Auto) Neut % (Auto) Lymph % (Auto) [place] % (Auto) Eos % (Auto) Baso % (Auto) Immature Gran # (Auto) Neut # (Auto) Lymph # (Auto) [place] # (Auto) Eos # (Auto) Baso # (Auto) Cord ABG pH 7.25 Cord ABG pCO2 55 Cord ABG pO2 15.0 Cord ABG HCO3 24 Cord ABG Base Excess -4.3 Cord ABG O2 Sat < 60.0 Cord VBG pH 7.46 H Cord VBG pCO2 30 L Cord VBG pO2 33 Cord VBG HCO3 21 Cord VBG Base Excess -1.8 Cord VBG O2 Sat 72.0 H Barometric Pressure 738.2 738.1 Blood Gas Comments AGUDELO AGUDELO Blood Type O Negative Antibody Screen POSITIVE A Antibody Identification Anti-D due to RhIg Screen 09/29/18 09/30/18 14:11 06:28 WBC 14.78 H RBC 2.61 L Hgb 8.5 L Hct 23.8 L MCV 91.2 MCH 32.6 MCHC 35.7 RDW Std Deviation 46.3 RDW Coeff of [place] 14.1 Plt Count 145 MPV 10.1 Immature Gran % (Auto) 0.7 Neut % (Auto) 80.7 Lymph % (Auto) 10.8 [place] % (Auto) 7.4 Eos % (Auto) 0.3 Baso % (Auto) 0.1 Immature Gran # (Auto) 0.11 H Neut # (Auto) 11.92 H Lymph # (Auto) 1.59 [place] # (Auto) 1.09 H Eos # (Auto) 0.05 Baso # (Auto) 0.02 Cord ABG pH Cord ABG pCO2 Cord ABG pO2 Cord ABG HCO3 Cord ABG Base Excess Cord ABG O2 Sat Cord VBG pH Cord VBG pCO2 Cord VBG pO2 Cord VBG HCO3 Cord VBG Base Excess Cord VBG O2 Sat Barometric Pressure Blood Gas Comments Blood Type Cancelled Antibody Screen Cancelled Antibody Identification Screen Cancelled Medications Administered Docusate Sodium (Colace) 100 mg PO BID [facility] Stop: 10/29/18 20:59 Last Admin: 09/29/18 22:01 Dose: 100 mg Documented by: [id number] Gelatin (Surgifoam Sponge 100 (Large)) 1 ea EXT ONCE PRN PRN Reason: Bleeding Stop: 10/29/18 14:15 Last Admin: 09/29/18 13:00 Dose: 1 ea Documented by: [id number] Cefazolin Sodium (Ancef 1000mg) 1,000 mg in 7.5 mls @ 2.5 mls/min IV Q8H PRN PRN Reason: until delivery Stop: 10/08/18 20:59 Last Admin: 09/29/18 04:47 Dose: 2.5 mls/min Documented by: [id number] Admin: 09/28/18 21:02 Dose: 2.5 mls/min Documented by: [id number] Lactated Ringer's (Lr) 1,000 mls @ 125 mls/hr IV .Q8H [facility] Stop: 10/29/18 13:18 Last Infusion: 09/30/18 06:46 Dose: 125 mls/hr Documented by: [id number] Admin: 09/29/18 23:52 Dose: 125 mls/hr Documented by: [id number] Ketorolac Tromethamine (Toradol) 30 mg IV Q6H PRN PRN Reason: Breakthrough Surgical Pain Stop: 09/30/18 07:19 Last Admin: 09/30/18 06:51 Dose: 30 mg Documented by: [id number] Admin: 09/29/18 23:28 Dose: 30 mg Documented by: [id number] Admin: 09/29/18 14:59 Dose: 30 mg Documented by: [id number] Morphine Sulfate (Morphine Sulfate) 2 mg IV Q2H PRN PRN Reason: Breakthrough Surgical Pain Stop: 09/30/18 07:19 Last Admin: 09/29/18 14:23 Dose: 2 mg Documented by: [id number] Ranitidine HCl (Zantac) 150 mg PO BID [facility] Stop: 10/29/18 20:59 Last Admin: 09/29/18 22:01 Dose: 150 mg Documented by: [id number] <Faiza Dave MD, FACOG - Last Filed: 09/30/18 07:57> Co-Signing Physician Notes Resident Physician Supervision Note: I interviewed and examined the patient. Discussed with Dr. Mccartney and agree with findings and plan as documented in the note. Any exceptions or clarifications are listed here: Doing well. Routine pp day 1 . The urine in her mahmood has cleared and is now clear, yellow. Documented By: Faiza Dave MD, FACOG
[2018-09-30 07:20] LABS: RBC Morphology Unremarkable
--- NOTE | 2018-09-30 07:34 | Anesthesiology Progress Note ---
Date of Service September 30, 2018 Patient is s/p (emergent), on 09/29/2018;pt. had epidural in situ which was used for the anesthetic. Dr Ramirez removed the epidural catheter w/o incident. The patient states she's doing well. She has no c/o H/A,weakness or paresthesias to extremities or low back pain. Physical Exam Vital Signs Last Vital Signs Temp 36.7 C 09/30/18 04:40 Pulse 69 09/30/18 04:40 Resp 18 09/30/18 06:47 BP 100/67 09/30/18 04:40 Pulse Ox 98 09/30/18 06:47 Results & Data Medications Administered Docusate Sodium (Colace) 100 mg PO BID [facility] Stop: 10/29/18 20:59 Last Admin: 09/29/18 22:01 Dose: 100 mg Documented by: [id number] Gelatin (Surgifoam Sponge 100 (Large)) 1 ea EXT ONCE PRN PRN Reason: Bleeding Stop: 10/29/18 14:15 Last Admin: 09/29/18 13:00 Dose: 1 ea Documented by: [id number] Cefazolin Sodium (Ancef 1000mg) 1,000 mg in 7.5 mls @ 2.5 mls/min IV Q8H PRN PRN Reason: until delivery Stop: 10/08/18 20:59 Last Admin: 09/29/18 04:47 Dose: 2.5 mls/min Documented by: [id number] Admin: 09/28/18 21:02 Dose: 2.5 mls/min Documented by: [id number] Lactated Ringer's (Lr) 1,000 mls @ 125 mls/hr IV .Q8H [facility] Stop: 10/29/18 13:18 Last Infusion: 09/30/18 06:46 Dose: 125 mls/hr Documented by: [id number] Admin: 09/29/18 23:52 Dose: 125 mls/hr Documented by: [id number] Ranitidine HCl (Zantac) 150 mg PO BID [facility] Stop: 10/29/18 20:59 Last Admin: 09/29/18 22:01 Dose: 150 mg Documented by: [id number]
[2018-09-30] MEDS: LORATADINE 10 MG TAB PO SCH (08:49)
[2018-09-30] MEDS: DOCUSATE SODIUM 100 MG CAP PO SCH ×2 (08:50→21:05)
[2018-09-30] MEDS: FLUTICASONE PROPIONATE NA SPR 16 GM BTL SCH (08:50)
[2018-09-30] MEDS: PRENATAL VITAMIN 1 TAB PO SCH (08:51)
[2018-09-30] MEDS: IBUPROFEN 600 MG TAB PO PRN ×3 (09:28→18:31)
[2018-09-30] MEDS: OXYCODONE/ACETAMINOPHEN 5mg/325mg TAB PO PRN ×3 (09:30→18:31)
[2018-10-01] MEDS: IBUPROFEN 600 MG TAB PO PRN ×4 (05:35→21:37)
[2018-10-01] MEDS: OXYCODONE/ACETAMINOPHEN 5mg/325mg TAB PO PRN ×4 (05:36→21:38)
[2018-10-01 07:28] LABS: Hemoglobin 8.5 g/dL (12.0-16.0)
--- NOTE | 2018-10-01 08:03 | Obstetrical Progress Note ---
Date of Service <Benoit Mccartney DO - Last Filed: 10/01/18 08:03> October 01, 2018 Assessment & Plan <Benoit Mccartney DO - Last Filed: 10/01/18 08:03> (1) delivery delivered: Gwendolyn Styles is 30 year old who delivered at 41.1 weeks GA via for failure to progress. - POD #2 - GBS+, covered with antibiotic coverage as per protocol - O-, Rh profile with Rhogam was ordered yesterday - Plan for today is to encourage ambulation, analgesics for pain control as needed, continue routine post-op/ care (2) Failure of descent in labor, delivered, current hospitalization: Delivered via Subjective <Benoit Mccartney DO - Last Filed: 10/01/18 08:03> Ambulation: ambulating normally Voiding: no voiding problems Passing Gas:: Yes Diet Tolerance:: regular diet Lochia:: Small Feeding Type:: bottle feeding Gwendolyn complains of mild bilateral lateral leg numbness that does not extend past the knee. She denies weakness or loss of sensation in feet. She denies chest pain, shortness of breath, headache, fever, chills, nausea, vomiting, diarrhea. Physical Exam <Benoit Mccartney DO - Last Filed: 10/01/18 08:03> Vital Signs (Past 24 Hours) Last Vital Signs Temp 36.7 C 10/01/18 00:00 Pulse 70 10/01/18 00:00 Resp 18 10/01/18 00:00 BP 107/70 10/01/18 00:00 Pulse Ox 96 10/01/18 00:00 Constitutional WD/WN, vitals as above cooperative and comfortable Eyes + anicteric sclerae and EOM intact bilaterally Neck normal visual inspection and trachea midline Respiratory normal respiratory effort, lungs clear to auscultation Cardiovascular Rate/Rhythm: regular rate and regular rhythm Heart Sounds: no murmur Gastrointestinal (Abdomen) Inspection/Auscultation: normal bowel sounds Percussion/Palpation: abdomen nontender uterine fundus is firm, non-tender, 3cm below umbilicus. surgical wound is well healing, clean, dry, intact without erythema, or signs of infection Musculoskeletal Head/Neck/Chest: normocephalic and head atraumatic Skin no rashes, warm and dry Neurologic moves all extremities and awake Psychiatric A+Ox3, euthymic affect Results & Data <Benoit Mccartney DO - Last Filed: 10/01/18 08:03> Laboratory Results Laboratory Results - last 24 hr 10/01/18 07:14 Hgb 8.5 L Hct 25.0 L Medications Administered Docusate Sodium (Colace) 100 mg PO BID [facility] Stop: 10/29/18 20:59 Last Admin: 09/30/18 21:05 Dose: 100 mg Documented by: [id number] Admin: 09/30/18 08:50 Dose: 100 mg Documented by: [id number] Admin: 09/29/18 22:01 Dose: 100 mg Documented by: [id number] Fluticasone Propionate (Flonase) 1 sprays NA DAILY [facility] Stop: 10/30/18 08:59 Last Admin: 09/30/18 08:50 Dose: 1 sprays Documented by: [id number] Gelatin (Surgifoam Sponge 100 (Large)) 1 ea EXT ONCE PRN PRN Reason: Bleeding Stop: 10/29/18 14:15 Last Admin: 09/29/18 13:00 Dose: 1 ea Documented by: [id number] Cefazolin Sodium (Ancef 1000mg) 1,000 mg in 7.5 mls @ 2.5 mls/min IV Q8H PRN PRN Reason: until delivery Stop: 10/08/18 20:59 Last Admin: 09/29/18 04:47 Dose: 2.5 mls/min Documented by: [id number] Admin: 09/28/18 21:02 Dose: 2.5 mls/min Documented by: [id number] Lactated Ringer's (Lr) 1,000 mls @ 125 mls/hr IV .Q8H HERMIN[facility] Stop: 10/29/18 13:18 Last Infusion: 09/30/18 06:46 Dose: 125 mls/hr Documented by: [id number] Admin: 09/29/18 23:52 Dose: 125 mls/hr Documented by: [id number] Ibuprofen (Motrin) 600 mg PO Q4H PRN PRN Reason: Pain Stop: 10/29/18 13:41 Last Admin: 10/01/18 05:35 Dose: 600 mg Documented by: [id number] Admin: 09/30/18 18:31 Dose: 600 mg Documented by: [id number] Admin: 09/30/18 13:29 Dose: 600 mg Documented by: [id number] Admin: 09/30/18 09:28 Dose: 600 mg Documented by: [id number] Loratadine (Claritin) 10 mg PO DAILY [facility] Stop: 10/30/18 08:59 Last Admin: 09/30/18 08:49 Dose: 10 mg Documented by: [id number] Oxycodone/Acetaminophen (Percocet 5mg/325mg) 1 - 2 tab PO Q4H PRN PRN Reason: Pain Stop: 10/13/18 13:41 Last Admin: 10/01/18 05:36 Dose: 1 tab Documented by: [id number] Admin: 09/30/18 18:31 Dose: 1 tab Documented by: [id number] Admin: 09/30/18 13:30 Dose: 1 tab Documented by: [id number] Admin: 09/30/18 09:30 Dose: 1 tab Documented by: [id number] Prenat Multivit/[place]/Iron/Folic Ac ( Vitamin) 1 tab PO QAM HERMINIA Stop: 10/30/18 08:59 Last Admin: 09/30/18 08:51 Dose: 1 tab Documented by: [id number] Ranitidine HCl (Zantac) 150 mg PO BID [facility] Stop: 10/29/18 20:59 Last Admin: 09/30/18 21:05 Dose: 150 mg Documented by: [id number] Admin: 09/30/18 08:52 Dose: 150 mg Documented by: [id number] Admin: 09/29/18 22:01 Dose: 150 mg Documented by: [id number] <Marquis Ruano MD - Last Filed: 10/06/18 15:04> Co-Signing Physician Notes Patient seen and agree with the above findings and plan
[2018-10-01] MEDS: PRENATAL VITAMIN 1 TAB PO SCH (09:48)
[2018-10-01] MEDS: LORATADINE 10 MG TAB PO SCH (09:48)
[2018-10-01] MEDS: DOCUSATE SODIUM 100 MG CAP PO SCH ×2 (09:51→20:46)
[2018-10-01] MEDS: FLUTICASONE PROPIONATE NA SPR 16 GM BTL SCH (09:52)
[2018-10-02] MEDS: OXYCODONE/ACETAMINOPHEN 5mg/325mg TAB PO PRN ×2 (02:05→07:56)
[2018-10-02] MEDS: IBUPROFEN 600 MG TAB PO PRN ×2 (02:06→07:55)
--- NOTE | 2018-10-02 07:14 | Obstetrical Progress Note ---
Date of Service <Benoit Mccartney DO - Last Filed: 10/02/18 07:14> October 02, 2018 Assessment & Plan <Benoit DO Bib - Last Filed: 10/02/18 07:14> (1) delivery delivered: Gwendolyn Styles is 30 year old who delivered at 41.1 weeks [place] via for failure to progress. - POD #3 - GBS+, covered with antibiotic coverage as per protocol - O-, Rh profile with Rhogam was ordered post-op per protocol - Plan for today is to encourage ambulation, analgesics for pain control as needed, continue routine post-op/ care until discharge home today (2) Failure of descent in labor, delivered, current hospitalization: Delivered via Subjective <Benoit Mccartney DO - Last Filed: 10/02/18 07:14> Ambulation: ambulating normally Voiding: no voiding problems Passing Gas:: Yes Diet Tolerance:: regular diet Lochia:: Small Feeding Type:: bottle feeding Gwendolyn had no acute events overnight and states she is doing well. She denies fever, chills, chest pain, shortness of breath, nausea, vomiting, diarrhea, headache. She states that she is ready to be discharged home today. Physical Exam <Benoit DO Bib - Last Filed: 10/02/18 07:14> Vital Signs (Past 24 Hours) Last Vital Signs Temp 36.7 C 10/01/18 23:30 Pulse 69 10/01/18 23:30 Resp 18 10/01/18 23:30 BP 103/66 10/01/18 23:30 Pulse Ox 100 10/01/18 15:33 Constitutional WD/WN, vitals as above cooperative and comfortable Eyes + anicteric sclerae and EOM intact bilaterally Neck normal visual inspection and trachea midline Respiratory normal respiratory effort, lungs clear to auscultation Cardiovascular Rate/Rhythm: regular rate and regular rhythm Heart Sounds: no murmur Gastrointestinal (Abdomen) Inspection/Auscultation: normal bowel sounds Percussion/Palpation: abdomen nontender surgical incision wound is well healing, clean, dry, intact, without erythema or signs of infection. uterine fundus is firm, non-tender, 3cm below umbilicus Musculoskeletal Head/Neck/Chest: normocephalic and head atraumatic Skin no rashes, warm and dry Neurologic moves all extremities and awake Psychiatric A+Ox3, euthymic affect Results & Data <Benoit Mccartney DO - Last Filed: 10/02/18 07:14> Laboratory Results Laboratory Results - last 24 hr 10/01/18 07:14 Hgb 8.5 L Hct 25.0 L Medications Administered Docusate Sodium (Colace) 100 mg PO BID [facility] Stop: 10/29/18 20:59 Last Admin: 10/01/18 20:46 Dose: 100 mg Documented by: [id number] Admin: 10/01/18 09:51 Dose: 100 mg Documented by: [id number] Cosigned by: [id number] Admin: 09/30/18 21:05 Dose: 100 mg Documented by: [id number] Admin: 09/30/18 08:50 Dose: 100 mg Documented by: [id number] Admin: 09/29/18 22:01 Dose: 100 mg Documented by: [id number] Fluticasone Propionate (Flonase) 1 sprays NA DAILY [facility] Stop: 10/30/18 08:59 Last Admin: 10/01/18 09:52 Dose: 1 sprays Documented by: [id number] Cosigned by: [id number] Admin: 09/30/18 08:50 Dose: 1 sprays Documented by: [id number] Gelatin (Surgifoam Sponge 100 (Large)) 1 ea EXT ONCE PRN PRN Reason: Bleeding Stop: 10/29/18 14:15 Last Admin: 09/29/18 13:00 Dose: 1 ea Documented by: [id number] Cefazolin Sodium (Ancef 1000mg) 1,000 mg in 7.5 mls @ 2.5 mls/min IV Q8H PRN PRN Reason: until delivery Stop: 10/08/18 20:59 Last Admin: 09/29/18 04:47 Dose: 2.5 mls/min Documented by: [id number] Admin: 09/28/18 21:02 Dose: 2.5 mls/min Documented by: [id number] Lactated Ringer's (Lr) 1,000 mls @ 125 mls/hr IV .Q8H [facility] Stop: 10/29/18 13:18 Last Infusion: 09/30/18 06:46 Dose: 125 mls/hr Documented by: [id number] Admin: 09/29/18 23:52 Dose: 125 mls/hr Documented by: [id number] Ibuprofen (Motrin) 600 mg PO Q4H PRN PRN Reason: Pain Stop: 10/29/18 13:41 Last Admin: 10/02/18 02:06 Dose: 600 mg Documented by: [id number] Admin: 10/01/18 21:37 Dose: 600 mg Documented by: [id number] Admin: 10/01/18 15:44 Dose: 600 mg Documented by: [id number] Admin: 10/01/18 09:49 Dose: 600 mg Documented by: [id number] Cosigned by: [id number] Admin: 10/01/18 05:35 Dose: 600 mg Documented by: [id number] Admin: 09/30/18 18:31 Dose: 600 mg Documented by: [id number] Admin: 09/30/18 13:29 Dose: 600 mg Documented by: [id number] Admin: 09/30/18 09:28 Dose: 600 mg Documented by: [id number] Loratadine (Claritin) 10 mg PO DAILY [facility] Stop: 10/30/18 08:59 Last Admin: 10/01/18 09:48 Dose: 10 mg Documented by: [id number] Cosigned by: [id number] Admin: 09/30/18 08:49 Dose: 10 mg Documented by: [id number] Oxycodone/Acetaminophen (Percocet 5mg/325mg) 1 - 2 tab PO Q4H PRN PRN Reason: Pain Stop: 10/13/18 13:41 Last Admin: 10/02/18 02:05 Dose: 1 tab Documented by: [id number] Admin: 10/01/18 21:38 Dose: 1 tab Documented by: [id number] Admin: 10/01/18 15:44 Dose: 1 tab Documented by: [id number] Admin: 10/01/18 09:51 Dose: 1 tab Documented by: [id number] Cosigned by: [id number] Admin: 10/01/18 05:36 Dose: 1 tab Documented by: [id number] Admin: 09/30/18 18:31 Dose: 1 tab Documented by: [id number] Admin: 09/30/18 13:30 Dose: 1 tab Documented by: [id number] Admin: 09/30/18 09:30 Dose: 1 tab Documented by: [id number] Prenat Multivit/[place]/Iron/Folic Ac ( Vitamin) 1 tab PO QAM HERMINIA Stop: 10/30/18 08:59 Last Admin: 10/01/18 09:48 Dose: 1 tab Documented by: [id number] Cosigned by: [id number] Admin: 09/30/18 08:51 Dose: 1 tab Documented by: [id number] Ranitidine HCl (Zantac) 150 mg PO BID [facility] Stop: 10/29/18 20:59 Last Admin: 10/01/18 20:48 Dose: 150 mg Documented by: [id number] Admin: 10/01/18 09:49 Dose: 150 mg Documented by: [id number] Cosigned by: [id number] Admin: 09/30/18 21:05 Dose: 150 mg Documented by: [id number] Admin: 09/30/18 08:52 Dose: 150 mg Documented by: [id number] Admin: 09/29/18 22:01 Dose: 150 mg Documented by: [id number] <Batsheva Ac MD, FACOG - Last Filed: 10/02/18 08:34> Co-Signing Physician Notes Resident Physician Supervision Note: I interviewed and examined the patient. Discussed with Dr. Mccartney and agree with findings and plan as documented in the note. Any exceptions or clarifications are listed here: Doing well. Ready for d/c home. eating, ambulating, tiffany po, +flatus. incision c/d/i with steris. ff 2 down nt. nt calves. discussed instructions for discharge. pain meds script given. f/u 6 wks pp check. Documented By: Batsheva Ac MD, FACOG
[2018-10-02] MEDS: FLUTICASONE PROPIONATE NA SPR 16 GM BTL SCH (07:59)
[2018-10-02] MEDS: LORATADINE 10 MG TAB PO SCH (08:00)
[2018-10-02] MEDS: PRENATAL VITAMIN 1 TAB PO SCH (08:00)
[2018-10-02] MEDS: DOCUSATE SODIUM 100 MG CAP PO SCH (08:01)
--- NOTE | 2018-10-06 10:01 | Discharge Summary ---
ADMISSION DIAGNOSES: 1. Intrauterine at 41 weeks. 2. Flank pain. HISTORY: This patient is 41 weeks who had a planned induction of labor for Saturday, who presented with acute right flank pain that kept her from sleeping, not responding to [id number] pain medications or heat. She is noted to have a personal history of kidney stones. She underwent an ultrasound showing a left nonobstructing kidney stone and bilateral right greater than left ureteral dilation. Given that she had a favorable cervix, the plan was made for her to be induced. For the rest of patient's history and physical, please see her dictated history and physical. HOSPITAL COURSE: The patient was admitted. She underwent Pitocin for induction and antibiotics for GBS prophylaxis. The patient underwent AROM and then subsequently had an epidural. She progressed and I took over for the patient in the morning of 09/29/2018. She just had her epidural redosed and had an anterior lip, was still high and hoping to labor down. She subsequently began the second stage and eventually pushed for 2+ hours without descent. I have recommended proceeding with section and they were agreeable. Cervix was complete-complete and 0 to +1 station. The patient underwent a primary low transverse section. Estimated blood loss, 700 mL. FINDINGS: A viable female in direct occiput posterior presentation with a unflexed head, loose nuchal cord x1, Apgars 9 and 9. Baby's weight was 8 pounds 11 ounces. Normal uterus, tubes, and ovaries were noted bilaterally. There was a left cervical extension that was identified and repaired. The patient's postoperative course was uncomplicated. She tolerated a regular diet, ambulated without difficulty, voided without difficulty after the removal of her Quintero catheter. Tolerated a regular diet and passed flatus. She was discharged home on postoperative day #3 with routine pain control meds. ALLISON
== END 2018-10-02 12:18 | disposition home or self-care (01) | DRG 788 ==
LOC: OPB 09:46 → 4S1 09:47 → 4S2 09-29 16:38
DX: Z3A.41 41 weeks gestation of pregnancy; O32.4XX0 Maternal care for high head at term, not applicable or unspecified; Z37.0 Single live birth